=== PATIENT | male | born 1955 | race Caucasian/White ===

== ENCOUNTER 2017-04-04 11:04 | Emergency (ER) | payer BC ==
[2017-04-04 11:52] VITALS: BP 130/77
--- NOTE | 2017-04-04 12:36 | UC ---
Hand/Wrist HPI - HPI Summary HPI Summary: left ring finger needs to have ring removed, no distal compromise - History Of Current Complaint Chief Complaint: UCUpperExtremity Stated Complaint: RING STUCK ON FINGER Time Seen by Provider: 04/04/17 12:30 Hx Obtained From: Patient ?: No Onset/Duration: Gradual Onset Severity Currently: None - Allergies/Home Medications Allergies/Adverse Reactions: Allergies Allergy/AdvReac Type Severity Reaction Status Date / Time No Known Allergies Allergy Verified 04/04/17 11:52 Home Medications: Home Medications Pramipexole TAB* [Mirapex TAB*] 1.5 mg PO DAILY 04/04/17 [History Confirmed 05/21] PMH/Surg Hx/FS Hx/Imm Hx Previously Healthy: No - parkinsons - Surgical History Surgical History: Yes Surgery Procedure, Year, and Place: [facility]; Left Knee surgery x 2; Vasectomy; Right rotator cuff repair. - Family History Known Family History: Positive: None - Social History Occupation: Employed Full-time Lives: Alone Alcohol Use: None Substance Use Type: Marijuana Smoking Status (MU): Current Some Day Smoker Type: Cigarettes Household Exposure Type: Cigarettes - Immunization History Most Recent Influenza Vaccination: not utd Review of Systems Constitutional: Negative Skin: Negative Eyes: Negative ENT: Negative Respiratory: Negative Cardiovascular: Negative Gastrointestinal: Negative Genitourinary: Negative Motor: Negative Neurovascular: Negative Musculoskeletal: Negative, Other: - tight ring on left 4th finger Neurological: Negative Psychological: Negative Is Patient Immunocompromised?: No All Other Systems Reviewed And Are Negative: Yes Physical Exam Triage Information Reviewed: Yes Appearance: Well-Appearing, No Pain Distress, Well-Nourished Vital Signs: Initial Vital Signs Temp 98.3 F 04/04/17 11:47 Pulse 74 04/04/17 11:47 Resp 16 04/04/17 11:47 BP 130/77 04/04/17 11:47 Pulse Ox 98 04/04/17 11:47 Vital Signs Reviewed: Yes Eye Exam: Normal Eyes: Positive: Conjunctiva Clear ENT Exam: Normal ENT: Positive: Normal ENT inspection, Hearing grossly normal. Negative: Trismus , Muffled voice, Hoarse voice Dental Exam: Normal Neck exam: Normal Neck: Positive: Supple, Nontender Respiratory Exam: Normal Respiratory: Positive: Chest non-tender, No respiratory distress, No accessory muscle use Cardiovascular Exam: Normal Cardiovascular: Positive: RRR, Pulses Normal, Brisk Capillary Refill Musculoskeletal Exam: Normal Musculoskeletal: Positive: Strength Intact, ROM Intact, No Edema, Other: - n/m/ c intact left fourth finger Neurological Exam: Normal Neurological: Positive: Alert, Muscle Tone Normal Psychological Exam: Normal Skin Exam: Normal Hand/Wrist Course/Dx - Course Course Of Treatment: Ring removed with out incident with ring cutter by nursing staff - Differential Dx/Diagnosis Provider Diagnoses: Left 4 th finger ring removal Discharge - Discharge Plan Condition: Stable Disposition: HOME Referrals: [facility] [place] [facility] [Outside] - If Needed
== END 2017-04-04 12:35 | disposition home or self-care (01) ==
LOC: UCEAST 11:04
DX: S60.455A Superficial foreign body of left ring finger, initial encounter (principal); X58.XXXA Exposure to other specified factors, initial encounter; Y93.9 Activity, unspecified; Y92.9 Unspecified place or not applicable; G20 Parkinson's disease; Z72.0 Tobacco use
CPT/HCPCS: 99202; G0463

== ENCOUNTER 2017-04-14 12:41 | Emergency (ER) | payer SELFPAY ==
[2017-04-14 13:16] VITALS: BP 124/78
--- NOTE | 2017-04-14 13:53 | UC ---
Back Pain HPI - HPI Summary HPI Summary: Pt presents with right sided lower back pain. He tells me that about 3 days ago he developed right sided lower back pain that has gotten progressively worse since. He denies specific injury, but tells me that 1 week ago he was lifting a lot of furniture and helping a family member move. In the last few weeks he has also tried to increase his activity level and has been walking significantly more than usual in an effort to lose weight. He has been taking ibuprofen and applying ice with mild relief. He denies fever, chills, flank pain, abdominal pain, N/V/D/C, dysuria, loss of bowel or bladder control, numbness, tingling, or radiation of pain. He also tells me that he is interested in quitting smoking. He has used chantix in the past and was able to stop smoking completely for months. He is interested in an rx for chantix today. - History of Current Complaint Chief Complaint: UCBackPain Stated Complaint: BACK PAIN Time Seen by Provider: 04/14/17 13:53 Hx Obtained From: Patient Onset/Duration: Gradual Onset Timing: Constant Severity Initially: Mild Severity Currently: Moderate Pain Intensity: 6 Pain Scale Used: 0-10 Numeric Character: Dull, Aching, Throbbing, Spasmodic Aggravating Factor(s): Movement, Lifting, Bending, Walking Alleviating Factor(s): Rest, Position - Allergies/Home Medications Allergies/Adverse Reactions: Allergies Allergy/AdvReac Type Severity Reaction Status Date / Time No Known Allergies Allergy Verified 04/04/17 11:52 Home Medications: Home Medications Naproxen Sodium [Naproxen Sodium 220 mg] 220 mg PO 04/14/17 [History] PMH/Surg Hx/FS Hx/Imm Hx - Additional Past Medical History Additional PMH: Restless leg syndrome Previously Healthy: Yes - Surgical History Surgical History: Yes Surgery Procedure, Year, and Place: [facility]; Left Knee surgery x 2; Vasectomy; Right rotator cuff repair. - Family History Known Family History: Positive: None - Social History Occupation: Employed Full-time Lives: With Family Alcohol Use: Rare Substance Use Type: Marijuana Substance Use Comment - Amount & Last Used: weekly Smoking Status (MU): Light Every Day Tobacco Smoker Type: Cigarettes Household Exposure Type: Cigarettes Cessation Counseling: Counseled 3+Min - 10 Min - Immunization History Most Recent Influenza Vaccination: not utd Review of Systems Constitutional: Negative Skin: Negative Respiratory: Negative Cardiovascular: Negative Gastrointestinal: Negative Genitourinary: Negative Neurovascular: Negative Musculoskeletal: Decreased ROM - Back, Other: - Lower back pain Neurological: Negative Psychological: Negative All Other Systems Reviewed And Are Negative: Yes Physical Exam Triage Information Reviewed: Yes Appearance: Well-Appearing, Well-Nourished Vital Signs: Initial Vital Signs Temp 97.9 F 04/14/17 13:11 Pulse 77 04/14/17 13:11 Resp 18 04/14/17 13:11 BP 124/78 04/14/17 13:11 Pulse Ox 99 04/14/17 13:11 Vital Signs Reviewed: Yes Neck: Positive: Supple, No Lymphadenopathy, Other: - NTTP. FROM. Respiratory: Positive: Chest non-tender, Lungs clear, Normal breath sounds, No respiratory distress, No accessory muscle use Cardiovascular: Positive: RRR, No Murmur Abdomen Description: Negative: CVA Tenderness (R), CVA Tenderness (L) Musculoskeletal: Positive: Strength Intact - B/L LEs including dorsiflexion and plantar flexion., ROM Intact - B/L LEs, No Edema, ROM Limited @ - Spine. Flexion >30deg reproduces pain in right lower back. Cannot extend due to pain., Other: - SLR positive on right. Negative LYNDSAY. TTP over right lumbar paraspinal muscles. No vertebral tenderness. Neurological: Positive: Alert, Other: - CN II XII grossly intact. L3-S1 sensations intact b/l. Reflexes knee and ankle intact. Psychological: Positive: Age Appropriate Behavior Skin: Negative: rashes, significant lesion(s) Back Pain Course/Dx - Course Course Of Treatment: Lower back spasm/strain - Toradol IM in clinic today. Meloxicam BID and flexeril at bedtime. He is interested in quitting smoking again and has used chantix in the past with success, will rx for this again today. - Differential Dx/Diagnosis Differential Diagnosis/HQI/PQRI: Arthritis, Cauda Equina Syndrome, Renal Colic, Strain, Sprain Provider Diagnoses: Lower back spasm. Smoking cessation Discharge - Discharge Plan Condition: Stable Disposition: HOME Prescriptions: Cyclobenzaprine TAB* [Flexeril 10 MG TAB*] 10 mg PO BEDTIME PRN #10 tab PRN Reason: Pain Meloxicam 7.5 mg PO BID PRN #20 tab PRN Reason: Pain Varenicline Tartrate [Chantix Starting M... 0.5 mg X 11 & 1 mg X 42] 1 alyssa PO DAILY #1 alyssa Patient Education Materials: Low Back Strain (ED), Lower Back Exercises (ED) Referrals: No Primary Care Phys,NOPCP [Primary Care Provider] - Additional Instructions: If you develop a fever, SOB, chest pain, new or worsening symptoms - please call your PCP or go to the ED. 1) Continue to rest and heat your lower back. 2) May take Flexeril one tablet at bedtime as needed for spasm and pain 3) Try the stretches as demonstrated and shown on the handouts.
[2017-04-14] MEDS ORDERED: Ketorolac INJ* 30 MG/ML 1 ML VIAL IM ONE (14:03)
== END 2017-04-14 14:24 | disposition home or self-care (01) ==
LOC: UCEAST 12:41
DX: M62.830 Muscle spasm of back (principal); F17.210 Nicotine dependence, cigarettes, uncomplicated
CPT/HCPCS: 99212; G0463; J1885

== ENCOUNTER 2018-11-10 19:27 | Emergency (ER) | payer BC ==
[2018-11-10 19:41] VITALS: BP 115/73
--- NOTE | 2018-11-10 21:16 | UC ---
Skin Complaint HPI - HPI Summary HPI Summary: 63 y/o male presents to the urgent care c/o Rash on back of right ankle- started three days ago. - History of Current Complaint Chief Complaint: UCLowerExtremity Time Seen by Provider: 11/10/18 21:10 Stated Complaint: RASH Hx Obtained From: Patient Pain Intensity: 5 - Allergy/Home Medications Allergies/Adverse Reactions: Allergies Allergy/AdvReac Type Severity Reaction Status Date / Time No Known Allergies Allergy Verified 11/10/18 19:41 PMH/Surg Hx/FS Hx/Imm Hx - Surgical History Surgical History: Yes Surgery Procedure, Year, and Place: [facility]y; Left Knee surgery x 2; Vasectomy; Right rotator cuff repair. - Family History Known Family History: Positive: None - Social History Alcohol Use: Daily Alcohol Amount: one or two glasses wine Substance Use Type: Marijuana Substance Use Comment - Amount & Last Used: daily Smoking Status (MU): Former Smoker Type: Cigarettes When Did the Patient Quit Smoking/Using Tobacco: 2018 Household Exposure Type: Cigarettes - Immunization History Most Recent Influenza Vaccination: not utd Physical Exam - Summary Physical Exam Summary: Vital Signs Reviewed: Yes General: well appearing, well nourished in no acute apparent pain distress, sitting comfortably on examining table Eye Exam: Normal Eyes: Positive: Conjunctiva Clear - PERRLA< EOMI, fundi grossly normal ENT: Positive: Normal ENT inspection, Hearing grossly normal, Pharynx normal, TMs normal Neck: Positive: Supple, Nontender, No Lymphadenopathy Respiratory: Positive: Chest non-tender, Lungs clear, Normal breath sounds, No respiratory distress Cardiovascular: Positive: RRR, No Murmur, Pulses Normal, Brisk Capillary Refill Abdomen Description: Positive: Nontender, No Organomegaly, Soft. Negative: CVA Tenderness (R), CVA Tenderness (L) Bowel Sounds: Positive: Present Musculoskeletal: Positive: Strength Intact, ROM Intact, No Edema Neurological: Positive: Alert, Muscle Tone Normal Psychological Exam: Normal Skin: Positive: Positive erythematous patch w/ indistinct borders, warm and tender to palpation, no drainage observed. pulses WNL, capillary refill brisk, sensation WNL. Triage Information Reviewed: Yes Vital Signs: Initial Vital Signs Temp 99.7 F 11/10/18 19:34 Pulse 96 11/10/18 19:34 Resp 12 11/10/18 19:34 BP 115/73 11/10/18 19:34 Pulse Ox 96 11/10/18 19:34 Course/Dx - Differential Diagnoses - Skin Complaint Differential Diagnoses: Abscess, Cellulitis, Contact Dermatitis, Local Allergic Reaction, MRSA, Tick Born Illness, Urticaria - Diagnoses Provider Diagnosis: Cellulitis of right lower leg Discharge - Sign-Out/Discharge Documenting (check all that apply): Patient Departure - D/C home All imaging exams completed and their final reports reviewed: No Studies - Discharge Plan Condition: Stable Disposition: HOME Prescriptions: Bacitracin OINTMENT* 1 applic TOPICAL BID #1 tube Cephalexin CAP* [Keflex CAP*] 500 mg PO TID #20 cap Patient Education Materials: Cellulitis (ED) Referrals: Raghu Bravo MD [Primary Care Provider] - 3 Days Additional Instructions: 1-Please take full course of Antibiotic. Please take yogurts w/ probiotics or Culturelle to protect your GI system 2- If redness and swelling doubles in size after 48 hrs of taking antibiotic and fever develops please go to the ER immediately. 3-Avoid standing for long periods of time or flexing your foot, keep it elevated and keep wound clean and dry. apply Bacitracin oint as directed 4-Please F/u with your PCP in 3 days if not improvement of symptoms for further evaluation and treatment. - Billing Disposition and Condition Condition: STABLE Disposition: Home
[2018-11-10] MEDS ORDERED: Cephalexin CAP* 500 MG PO ONE (21:53)
== END 2018-11-10 22:00 | disposition home or self-care (01) ==
LOC: UCEAST 19:27
DX: L03.115 Cellulitis of right lower limb (principal); Z87.891 Personal history of nicotine dependence
CPT/HCPCS: 99212; A9270-GY; G0463